=== PATIENT | male | born 1990 | race Caucasian/White ===

== ENCOUNTER 2022-02-21 00:56 | Outpatient (CLI) | payer BC, SELFPAY ==
--- OUTSIDE RECORDS SUMMARY | 2022-02-21 01:04 | XMS_ITS | Clinical Summary ---
:1990 Author Organization [facility] [place] [address] Care Team Providers Name Role Phone Luisito Goldman MD, [place] Primary Care Provider Allergies No known active allergies Medications Medication Sig Dispensed Refills Start Date End Date Status albuterol (PROVENTIL Inhale 2 puffs 0 Active HFA;VENTOLIN into the lungs HFA;PROAIR) 90 every 4 hours as mcg/actuation HFA needed for Aerosol Inhaler Wheezing. Use with spacer ketoconazole (NIZORAL) Apply to affected 120 mL 0 6 Active 2 % areas on torso and ShampooIndications: face daily until Seborrheic dermatitis clear and then 1-2 times weekly. Lather, leave for 5-10 min, then rinse. 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 Social History Tobacco Use Types Packs/Day Years Used Date Never Smoker Sex Assigned at Date Recorded Not on file Plan of Treatment Upcoming Encounters Date Type Specialty Care Team Description 04/29/2022 Office Visit Dermatology Rosalio Jennings MD [facility] [address] [place], [place] [address] (Wo rk) Health Maintenance Due Date Last Done Comments Covid-19 Vaccine (#1) 02/16/1996 HIV screen 2009 Hepatitis C Screening 2009 Tdap adult 2010 Tetanus vaccine 2010 Influenza (Flu) vaccine (1 of - Influenza standard 03/06/2022 series) Care Teams Voting Machine Mechanic Relationship Specialty Start Date End Date [place] Jorge MD PCP - General 05/28/10 [address] [place] [address]
--- OUTSIDE RECORDS SUMMARY | 2022-02-21 01:04 | XMS_ITS | Encounter Summary ---
:1990 Author Organization [facility] [place] [address] Care Team Providers Name Role Phone Luisito Goldman MD, Mark Primary Care Provider Encounter Details Date Type Department Care Team Description 12/26/2015 Telephone Dermatology at [facility] Jeannette Tony PA [address] [facility] [id number] [facility] [phone] [place], [place] [address] (Wo rk) Social History Tobacco Use Types Packs/Day Years Used Date Never Smoker Sex Assigned at Date Recorded Not on file documented as of this encounter Miscellaneous Notes Telephone Encounter - Jeannette Tony PA - 12/26/2015 10:46 AM EDT Refill sent. Telephone Encounter - Vinod Rosado - 12/26/2015 10:23 AM EDT BS PT- Last seen on 11/21/15. He called and left a message on my VM stating that the rash on his chest and the skin on his face dried up with the Ketoconazole shampoo. He is please and was wondering if he could get a refill of that. He also would like a mole removal done, he is only here for a couple more days, i will call him andtry and schedule him with you for a bx of a mole, per the office visit note. His number is [phone]. documented in this encounter Plan of Treatment Upcoming Encounters Date Type Specialty Care Team Description 04/29/2022 Office Visit Dermatology Rosalio Jennings MD [facility] [address] [place], [place] [address] (Wo rk) documented as of this encounter Visit Diagnoses Diagnosis Seborrheic dermatitis Seborrheic dermatitis, unspecified documented in this encounter Care Teams Cardiopulmonary Technologist Chief Relationship Specialty Start Date End Date [place] Jorge MD PCP - General 05/28/[address] [place] [address] [place] [address] documented as of this encounter
--- OUTSIDE RECORDS SUMMARY | 2022-02-21 01:04 | XMS_ITS | Encounter Summary ---
:1990 Author Organization [facility] [place] [address] Care Team Providers Name Role Phone Luisito Goldman MD, [place] Primary Care Provider Reason for Visit Reason Comments Dermatitis rash/dry skin Encounter Details Date Type Department Care Team Description 11/21/2015 Office Visit Dermatology at Dax Mehta MD [facility] [address] [address] Seborrheic dermatitis; Jeannette Bhatia PA [facility] [address] [place] [address] Multiple benign nevi; [address] [place]ro[place] [address] Social History Tobacco Use Types Packs/Day Years Used Date Never Smoker Sex Assigned at Date Recorded Not on file documented as of this encounter Progress Notes Rosa Agee MD - 11/21/2015 2:34 PM EDT Patient seen and examined with Mariah Tony PA-C. We reviewed the patient's history. I personally examined the patient. We discussed the assessment and plan. Specifically, ?? Expand All Collapse All I have seen and examined this patient.?? I evaluated the skin findings: ??- I noted orange-pink small scaly grouped papules on central chest. PIETRO negative for fungal elements. Atypical nevus left superior shoulder. I went over the patient's history and discussed the symptoms. I discussed recommendations and therapeutic measures. ??- I agree with treatment with topical ketoconazole. Biopsy of nevus after diving trip. We will see the patient back as planned; they will call if problems arise. Patient seen in conjunction with Jeannette Tony PA-C (Bri) Signed by: ROSA AGEE MD Section of Dermatology [facility] Jeannette Tony PA - 11/21/2015 10:23 AM EDT Images from the original note were not included. DERMATOLOGY - NEW PATIENT NOTE Date of service: 11/21/2015 Stepan Brown : 1990 Dermatology Physician Buttonhole Maker Note: Jeannette Tony PA-C (Bri) Chief Complaint Patient presents with ??? Dermatitis rash/dry skin Stepan Brown is a 25 y.o. male. This is a new patient to me and to the clinic. The patient is self-referred. HPI: Mr. Brown presents for an occasionally itchy pink scaly rash on the central chest present for the past few months. A small new lesion has now formed inferior to the original site. He also has bumps onhis back and chest, as well as dry and itchy scaling of his eyebrows and lopes area. Finally, he would like to have a mole check. Denies changes to any moles. + Fx melanoma in his uncle. He uses whatever laundry detergent is available, dryer sheets, generic soap, Cetaphil moisturizer and Head and Shoulders or T-gel shampoo. He has a cat at home. Past Skin History: History of blistering sunburns Medical History: There is no problem list on file for this patient. No Defibrillator/pacemaker No Anti-coagulants Medications: Current Outpatient Prescriptions Medication Sig Dispense Refill ??? albuterol (PROVENTIL HFA;VENTOLIN HFA;PROAIR) 90 mcg/actuation HFA Aerosol Inhaler Inhale 2 puffs into the lungs every 4 hours as needed for Wheezing. Use with spacer No current facility-administered medications for this visit. Allergies: No Known Allergies Family History: Uncle- melanoma No known family h/o atopy, psoriasis, or other skin disease Social/Occupational History: Currently in Masters Program at the [employer] Originally from [place], [place] Review of Systems: General: Denies recent illness, chills, or fever Skin: As per HPI; no other skin concerns Examination: Constitutional: Patient was pleasant, alert, well-appearing and in no noticeable distress. Skin: Patient was asked to disrobe to the level of his comfort. Patient was asked to disrobe to the level of their comfort. Examination of skin from the waist up was performed. This includes examination of the skin of the face, ears, neck, chest, axillae, left and right upper extremities, hands, back,and abdomen. Specific skin findings: 1. Yellowish-white scale on b/l eyebrows, nasolabial folds, ears, and glabella. Right central chest and central mid chest: 2-3cm pink scaly annular plaques Photos taken (by Jeannette Tony PA-C (Bri)) with patient's verbal consent: 2. Pinpoint follicular pustules on the back and chest. 3. Multiple, 0.3-0.5cm, medium-brown, evenly-pigmented macules and papules. Left upper back: 3mm medium brown centrally hypopigmented macule Photo taken (by Jeannette Tony PA-C (Bri)) with patient's verbal consent: Diagnosis/Assessment/Treatment Plan: 1-2. 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 Ketoconazole shampoo should be effective for both conditions. - Rx: Ketoconazole 2% shampoo - Apply to affected areas on torso and bead area daily until clear and then 1-2 times weekly. Lather, leave for 5-10 min, then rinse. (120mL, 0 refills) Procedure: PIETRO testing of the skin scraping was negative x 2 for fungal elements. 3. Benign appearing nevi with concern for one mole on the left upper back - Encouraged patient to continue to monitor skin for changes and call if such occurs - Discussed importance of sun protection, sun avoidance strategies, protectiveclothing, and sunscreen. - Discussed warning signs for skin cancer, including the ABCE's of melanoma. - Recommended patient wear an SPF of 30 or higher, containing UVA and UVB that is broad spectrum, and to reapply every 2 hours - Skin cancer pamphlet provided Recommend biopsy of one lesion on the left upper back. He will call to schedule. LOS: [id number] RTC for f/u mole biopsy and Nizoral treatment. Instructed to call with questions or concerns. Patient verbally expressed understanding. I specifically asked the patient at the end of the visit if there were any further concerns or questions and the patient verbally stated there were no other concerns or questions. All questions were answered and all concerns were addressed. Note initiated by VALERIANO SHEA LPN I am documenting this encounter acting as the scribe for and in the presence of Jeannette Tony PA-C (Bri) I performed the above scribed service and agree with the accuracy of the documentation in this encounter. Reviewed and signed by Jeannette Tony PA-C (Bri) Dermatology [facility] Patient seen in conjunction with attending physician: Rosa Agee MD Section of Dermatology [facility] documented in this encounter Plan of Treatment Upcoming Encounters Date Type Specialty Care Team Description 04/29/2022 Office Visit Dermatology Rosalio Jennings MD [facility] [address] [place], [place] [address] (Wo rk) documented as of this encounter Visit Diagnoses Diagnosis Seborrheic dermatitis Seborrheic dermatitis, unspecified Multiple benign nevi Benign neoplasm of skin, site unspecifie d Pityrosporum folliculitis Other specified disease of hair and hair follicles documented in this encounter Care Teams Ladle Operator Relationship Specialty Start Date End Date [place] Jorge MD PCP - General 05/28/[address] [place] [address] documented as of this encounter
--- OUTSIDE RECORDS SUMMARY | 2022-02-21 01:04 | XMS_ITS | Encounter Summary ---
:1990 Author Organization [facility] [place] [address] Care Team Providers Name Role Phone Luisito Goldman MD, Mark Primary Care Provider Encounter Details Date Type Department Care Team Description 12/26/2015 Telephone Dermatology at [facility] Jeannette Bhatia PA [address] [place] [place] [address] [facility] [phone] [place], [place] [address] (Wo rk) Social History Tobacco Use Types Packs/Day Years Used Date Never Smoker Sex Assigned at Date Recorded Not on file documented as of this encounter Miscellaneous Notes Telephone Encounter - Vinod Rosado - 12/26/2015 1:20 PM EDT I called this patient to schedule his mole removal with you. Unfortunately he was getting ready to move back to [place] in a couple days and there were not openings with you to have this done. The patient is okay with this and will have it done in [place]. He wanted to send thanks to you for the care he received and appreciates you refilling his ketoconazole script. documented in this encounter Plan of Treatment Upcoming Encounters Date Type Specialty Care Team Description 04/29/2022 Office Visit Dermatology Rosalio Jennings MD [facility] [address] [place], [place] [address] (Wo rk) documented as of this encounter Visit Diagnoses Not on filedocumented in this encounter Care Teams Personal Banking Advisor Relationship Specialty Start Date End Date [place] Jorge MD PCP - General 05/28/[address] [place] [address] [place] [address] documented as of this encounter
[2022-02-21 12:00] LABS: Source Nasal/Nares
[2022-02-21 14:47] LABS: COVID-19 PCR Negative (Negative)
== END 2022-02-21 00:57 | disposition home or self-care (01) ==
LOC: LBO 00:56
PROVIDERS: PCP Nurse Practitioner Family; Visit Provider Otolaryngology
DX: Z20.822 Contact with and (suspected) exposure to COVID-19 (principal)
CPT/HCPCS: 87635

== ENCOUNTER 2022-02-24 08:24 | Day surgery (SDC) | payer BC, SELFPAY ==
[2022-02-24] VITALS (11 sets, daily range): BP systolic 138–157; BP diastolic 94–114; PULSE 66–83; RESP 13–18; TEMP 36.4–36.8; O2SAT 95–99; BMI 29.5
[2022-02-24] MEDS: Lactated Ringers 1,000 ML 80 ML IV (08:58)
--- NOTE | 2022-02-24 09:58 | W.ANESPRE ---
General Info Date of Service Date Performed: 02/24/22 Height: 6 ft 4 in Weight: 110.2 kg Body Mass Index (BMI): 29.5 Surgical Procedure: Operation Date: 02/24/22 10:10 Proposed Procedure Side Surgeon p Tonsillectomy Candido Castro MD Meds Allergies and Home Medications Allergies Allergy/AdvReac Type Severity Reaction Status Date / Time No Known Allergies Allergy Unverified 02/24/22 08:45 Home Medication Medication Instructions Recorded cetirizine 10 mg capsule (Zyrtec) 10 mg PO DAILY PRN 01/29/22 Current Visit Medications: Current Medications Generic Name Dose Route Start Last Admin Trade Name Freq PRN Reason Stop Dose Admin Ringer's Solution 1,000 mls @ 80 mls/hr 02/24/22 06:00 02/24/22 08:58 IV 03/23/22 23:59 80 mls/hr INFUSION AMBROSE Administration Cefazolin Sodium/Dextrose 2 gm in 50 mls @ 100 mls/hr 02/24/22 06:00 Ancef Duplex IVPB 03/23/22 23:59 PREOP AMBROSE Tranexamic Acid 1,000 mg/ 60 mls @ 360 mls/hr 02/24/22 06:00 Sodium Chloride IVPB 02/24/22 18:00 PREOP AMBROSE IV Miscellaneous Supplies 1 each 02/24/22 06:00 Iv Access IV 03/23/22 23:59 DIRECTED AMBROSE Sodium Chloride 0 ml 02/24/22 06:00 Normal Saline Flush 10 Ml Syr IV 03/23/22 23:59 PRN PRN Sodium Chloride 0 ml 02/24/22 06:00 Normal Saline 10 Ml Vial IJ 03/23/22 23:59 DIRECTED PRN Sterile Water 0 ml 02/24/22 06:00 Water,Injection,Sterile 10 Ml Vial IJ 03/23/22 23:59 DIRECTED PRN PFSH Active Problems Active Problems: Problem Status Onset Code Chronic tonsillitis J35.01 Tonsillolith J35.8 Halitosis R19.6 Medical History Medical History (Updated 02/21/22 @ 11:33 by Cody Short) Hypertrophy of tonsils Low back pain Pilonidal cyst Medical History Comments:: pt. stated he has right side jaw pain Surgical History Surgical History (Updated 02/24/22 @ 08:45 by Anna Blackwell RN) H/O hernia repair (~2005) Hx of removal of cyst Tobacco Smoking/Tobacco Use Status: Never Second hand exposure: No Alcohol Alcohol Intake: current Alcohol intake frequency: 0-2 drinks per day Alcohol type: beer Substance Use Substance use: Never Substance use type: does not use Vital Signs and Lab Results Vital Signs Most Recent Vital Signs in EMR: Most Recent Vital Signs Temp Pulse Resp BP Pulse Ox 36.7 C 79 18 138/94 H 98 02/24/22 08:40 02/24/22 08:40 02/24/22 08:40 02/24/22 08:40 02/24/22 08:40 Lab Results Blood Type / Crossmatch: No Data to Display Complete Blood Count: No Data to Display Complete Metabolic Panel: No Data to Display Liver Function Panel: No Data to Display Coagulation Panel: No Data to Display Cardiac Panel: No Data to Display Arterial Blood Gas: No Data to Display Venous Blood Gas: No Data to Display Pancreas Panel: No Data to Display Thyroid Panel: No Data to Display Infectious Disease: Coronavirus (COVID-19)(PCR) Negative (Negative) 02/21/22 10:10 Coronavirus 2019 Source Nasal/Nares 02/21/22 10:10 Blood Cultures: No Data to Display Toxicology Panel: No Data to Display Anesthesia Assessment and Plan Anesthesia History Personal History: No History of Anesthesia Complications Family History: No Family History of Anesthesia Complications Exercise Tolerance Exercise Tolerance: Metabolic Equivalents>4 Pertinent Negatives Pertinent Negatives: No Symptoms of GERD, No Major Cardiovascular Symptoms or Complaints and No Major Pulmonary Symptoms or Complaints Cardiac & Pulmonary Exam Cardiac Exam: Normal S1/S2 Heart Sounds Pulmonary Exam: Clear Bilateral Breath Sounds Implantable Cardiac Device Does patient have a Pacemaker or an ICD?: No Airway Exam Known Difficult Airway: No Mallampati Class: 2 Mouth Opening: Normal (> 3cm) Thyromental Distance: Greater than 3 cm Facial Hair: Full Hartman Neck Range of Motion: Full ROM Neck Circumference: Normal Teeth Condition: Normal Dentition ASA Classification ASA Score: ASA 2 Emergency Case?: No NPO Status NPO Status: NPO Clears >2 hours, Solids >8 hours Anesthesia Plan Resuscitation Status: Full Code Anesthesia Technique: General Anesthesia Airway Planned: Endotracheal Tube Monitors Used: Standard Monitors
[2022-02-24] MEDS: ceFAZolin 2 GM/50 ML BAG IVPB (10:43)
--- NOTE | 2022-02-24 10:53 | TONSIL_PTH ---
PATIENT: Stepan Brown LOC: [facility] U#:[id number] AGE/SX: 32/M ROOM: RE02/24/[address]: Candido Castro MD : 1990 BED: DIS: 02/24/2022 SPEC #: [id number] RECD: 02/24/22 12:38 STATUS: RAYMON REQ #: [id number] SOM: 02/24/22 10:[address]: Candido Castro DEPT: Surgical Specimen RECD BY: Yris Rivera ENTERED: 02/24/22 12:38 SP TYPE: TONSIL OTHR DR: LARS PIERSON Tissues: 1 - TONSIL AGE 17 & OVER 2 - TONSIL AGE 17 & OVER Procedures: GROSS AND MICRO LEVEL 3 Comments: [id number]
[2022-02-24] MEDS: Lidocaine 1% Multi-Dose W/EPI 1/100,000 50 ML VIAL (11:00)
--- NOTE | 2022-02-24 11:23 | W.PM.DSUDISC ---
Discharge Plan Disposition Patient Disposition: HOME Condition: Good Discharge Details Reason For Visit: tonsillectomy Attending Provider: Candido Castro Primary Care Provider: LARS PIERSON Home Meds and New Rx's Prescriptions: No Action Zyrtec 10 mg capsule 10 mg PO DAILY PRN Discharge Instructions Additional Instructions: My cell is [phone] if you have any concerns or problems Stand Alone Forms: ENT- T&A InstrEnoch Castro Referrals: Candido Castro MD [ [facility] STAFF PHYSICIAN] - (1 month...please call for appt prior to departure) Discharge Orders Discharge Orders: Discharge Order (Routine); Ordered 02/24/22 Ordered By: Candido Castro
[2022-02-24] MEDS: fentaNYL 100 MCG/2 ML VIAL IVP ×2 (12:03→12:12)
--- NOTE | 2022-02-24 12:41 | W.PM.OP ---
Operative Note Operative Note DATE OF PROCEDURE: 02/24/22 PRE-OP DIAGNOSIS: Chronic tonsillitis POST-OP DIAGNOSIS: same PROCEDURE: Tonsillectomy SURGEON: Candido Castro ANESTHESIA TYPE: General LMA/ETT Refer to Anesthesia Record ESTIMATED BLOOD LOSS: 75 PATHOLOGY: other (Tonsils) COMPLICATIONS: None Patient was transported to: PACU Patient's condition: stable Indications: Patient with the above problems. Options were explained to the patient regarding further management. He elected to undergo the above procedure. Consent was filled out and signed prior to surgery. H&P was reviewed. The risks of narcotics were reviewed in detail. There has been no change in H&P Findings: 3+ tonsils with copious cryptic debris, significant scar tissue between the tonsil and the tonsillar fossa. Atrophic adenoids with no Tornwaldt cyst, no debris. Palate intact to inspection and palpation. Procedure Description: After obtaining an adequate level of general endotracheal anesthesia the patient was positioned in a supine position and prepped and draped in appropriate fashion. A Lorraine Lance mouthgag was carefully introduced into the oral cavity and opened to reveal a soft and hard palate which were examined revealing no evidence of an occult cleft palate. Adenoids were examined revealing the above findings. As such the decision was not to perform adenoidectomy. Each tonsil was infiltrated in a submucosal plane with 1% lidocaine with 1/100,000 epinephrine around the tonsil. Following this a 12 blade was used to incise mucosa along the superior, anterior, and posterior edges of the tonsil. A Rose elevator was then used to disarticulate the tonsil from the tonsillar fossa superiorly and then a Miller blade used to strip the tonsil free from the tonsillar fossa down to the inferior pole at which point time a tonsillar snare was used to amputate the residual tonsil. Electrocautery suction tip catheter set on 15 W coagulation was used to afford relative hemostasis. Valsalva failed to reveal any significant bleeding. The Lorraine-Lance mouthgag was relaxed and reopened revealing no bleeding. The Lorraine-Lance mouthgag was then relaxed and removed. Of note, care was taken not to disarticulate his mandible given his history of TMJ. The patient was then awakened and extubated by anesthesia and taken recovery room in stable condition. I was present throughout the entire case.
--- NOTE | 2022-02-24 12:55 | W.ANESPOSTOP ---
Postoperative Evaluation Date, Time and Location Date Performed: 02/24/22 Time Performed: 12:55 Patient Location: Day Surgery Unit Vital Signs Most Recent Imported Vital Signs: Most Recent Vital Signs Temp Pulse Resp BP Pulse Ox 36.4 C L 71 16 151/102 H 99 02/24/22 12:28 02/24/22 12:28 02/24/22 12:28 02/24/22 12:28 02/24/22 12:28 Pain Score Most Recent Pain Score: Most Recent Pain Score Pain Level 4 02/24/22 12:28 Assessment Mental Status: Awake (Alert & Oriented to Patient Baseline) Airway and Respiratory Function: Patent airway with normal (patient baseline) respiratory exam Cardiovascular Function: Hemodynamically Stable Hydration Status: Adequately Hydrated Nausea & Vomiting: No Nausea or Vomiting Pain: Pt. Denies Any Pain Peripheral Nerve Block: Patient did not receive a nerve block
== END 2022-02-24 13:30 | disposition home or self-care (01) ==
PROVIDERS: PCP Nurse Practitioner Family; Visit Provider Otolaryngology
PROC: (CPT 42826; principal; 2022-02-24 10:00)
DX: J35.01 Chronic tonsillitis (principal); J35.8 Other chronic diseases of tonsils and adenoids; J35.3 Hypertrophy of tonsils with hypertrophy of adenoids
CPT/HCPCS: 42826; 88304; J0131; J0690; J1100; J2405; J2704; J3010